=== PATIENT | male | born 2000 ===

== ENCOUNTER 2020-02-03 08:28 | Emergency (ER) | payer OTHER ==
[~2020-02-03] VITALS: Ht 177.8 cm; Wt 68.2 kg
[2020-02-03] MEDS ORDERED: ALBU6.7H9 INH (08:57)
== END 2020-02-03 09:41 | disposition home or self-care (01) ==
LOC: ER 08:29
DX: J45.20 Mild intermittent asthma, uncomplicated (principal); R05 Cough; Z79.899 Other long term (current) drug therapy
CPT/HCPCS: 99283